=== PATIENT | female | born 1955 | race Caucasian/White ===

== ENCOUNTER 2017-04-07 23:17 | Emergency (ER) | payer MEDICARE ==
--- NOTE | ~2017-04-07 | CT52 ---
[facility] A Service of [facility] RADIOLOGY TEXT RESULTS PATIENT: ADI FOOTE LOCATION: [facility] : 57 UNIT #: [id number] AGE: [address]: Levy Jackson MD SEX: F ORDER DR: [id number] [place], [place] [address] [id number] E MR#: [id number] Acc #: [id number] NAME: ADI FOOTE : 1955 SEX: F STUDY DATE/TIME: 04/08/2017 0:11 UNIT: TREE ROOM: STUDY DESCRIPTION: CT Cervical Spine Wo Cont Attending Physician: Levy Jackson M.D. Ordering Physician: Levy Jackson M.D. Primary Care Physician: Nghia Ojeda MEDICAL IMAGING REPORT This report is preliminary unless electronic signature is present EXAM Cervical spine CT without contrast INDICATION Neck pain after falling over in wheelchair tonight. TECHNIQUE Axial 2 mm images were obtained through the cervical spine and sagittal and coronal reconstructions were generated. This CT exam was performed with one or more of the following radiation dose reduction techniques: automatic exposure control, adjustment of mA and/or kV according to patient size, and iterative reconstruction. FINDINGS There is normal alignment. There is some posterior osteophyte formation at C5-6 and C6-7. There is no fracture or subluxation. IMPRESSION Mild degenerative changes C5-6 and C6-7, otherwise normal. Dictated by... Vahe Quijano M.D. THIS IS AN ELECTRONICALLY VERIFIED REPORT Vahe Quijano M.D. at 04/09/2017 5:00 AM COLIN/mario TD: 04/09/2017 01:58 JOB #: [id number] [facility] A Service of [facility] RADIOLOGY TEXT RESULTS PATIENT: ADI FOOTE LOCATION: [facility] : 57 UNIT #: [id number] AGE: [address]: Levy Jackson MD SEX: F ORDER DR: MEDICAL IMAGING REPORT Page 1 of 1 COPY
--- NOTE | ~2017-04-07 | CT71 ---
[facility] A Service of [facility] RADIOLOGY TEXT RESULTS PATIENT: ADI FOOTE LOCATION: [facility] : 57 UNIT #: [id number] AGE: [address]: Levy Jackson MD SEX: F ORDER DR: [id number] [facility] [address] [place], [place] [address] [id number] E MR#: [id number] Acc #: [id number] NAME: ADI FOOTE : 1955 SEX: F STUDY DATE/TIME: 04/08/2017 0:05 UNIT: [facility] ROOM: STUDY DESCRIPTION: CT Head Wo Contrast Attending Physician: Levy Jackson M.D. Ordering Physician: Levy Jackson M.D. Primary Care Physician: Nghia Ojeda MEDICAL IMAGING REPORT This report is preliminary unless electronic signature is present EXAM CT scan of the head without contrast INDICATION Trauma to back of head after wheelchair fell backwards. Complains of posterior headache since then, injury happened tonight. This CT exam was performed with one or more of the following radiation dose reduction techniques: automatic exposure control, adjustment of mA and/or kV according to patient size, and iterative reconstruction. FINDINGS Unenhanced images were obtained through the brain. There is some old ischemic change in the right cerebellum which has developed since the prior study from 03/17/2016. These are two areas measuring about 1 cm in diameter. There is no mass or extraaxial fluid collection. There is no fracture or hemorrhage. IMPRESSION Old small ischemic changes, right cerebellum, otherwise normal. Dictated by... Vahe Quijano M.D. THIS IS AN ELECTRONICALLY VERIFIED REPORT Vahe Quijano M.D. at 04/09/2017 5:00 AM COLIN/mario TD: 04/09/2017 01:54 JOB #: [id number] [facility] A Service of [facility] RADIOLOGY TEXT RESULTS PATIENT: ADI FOOTE [id number] 57 UNIT #: [id number] AGE: [address]: Levy Jackson MD SEX: F ORDER DR: MEDICAL IMAGING REPORT Page 1 of 1 COPY
[~2017-04-07 23:17] MED LIST: ACETAMINOPHEN PO; ALPRAZOLAM PO; ASPIR-TRIN325 MG PO; ASPIRIN PO; BACTRIM DS TABL1 TA1 PO; BAYER ASPIRIN325 M1 PO; BENADRYL25 M1 PO; CIPRO PO; CIPROFLOXACIN500 M1 PO; CLEOCIN HCL300 M1 PO; CLEOCIN PO; COLACE PO; DAKIN'S MODIF1000 ML TOP; DURAGESIC1 EAC1 SUBD; DURAGESIC1 EAC1 TD; ELIQUIS5 MG PO; EXCEDRIN MIGRA1 EACH PO; FERROUS GLUCON324 MG PO; FLEXERIL PO; FLORASTOR250 M1 PO; GABAPENTIN800 MG PO; HUMALOG MIX 75/10 ML SUBQ; HUMALOG100 U/M2 SUBQ; HUMALOG100 U/ML; HYDROCODON-ACE1 EAC4; HYDROCODON-ACE1 EAC4 PO; HYDROCODON-ACE1 EAC5 PO; HYDROCODONE-APA1 T54 PO; INDOMETHACIN50 MG PO; INSULIN SYR1 DIS.S10; JANUVIA PO; KEFZOL2 GM INJ; KLONOPIN1 M1 PO; KLONOPIN1 MG PO; LEVAQUIN PO; LEVAQUIN750 MG PO; LEVEMIR FL100 UNIT/1 SQ; LEVEMIR SUBQ; LEVEMIR100 UNITS/ SUBQ; LIPITOR20 MG PO; LIPITOR80 MG PO; LISINOPRIL PO; LISINOPRIL10 MG PO; LISINOPRIL5 MG PO; LORTAB 10/500 T1 TAB PO; LOTRIMIN 1% CR30 GM EXT; LOTRISONE CREAM45 GM TOP; LYRICA50 MG PO; METFORMIN HCL1000 M1 PO; METFORMIN PO; NEURONTIN PO; NEURONTIN800 MG DOB; NEURONTIN800 MG PO; NORCO 10/3251 TAB PO; NOVOLIN 70/30 V10 M1; NOVOLOG100 U/ML SUBQ; NOVOLOG7030 SUBQ; OXYCODONE-ACET1 EACH PO; PERCOCET 10/3251 TAB PO; PERCOCET5/325 PO; PHENERGAN25 MG PO; PREDNISONE10 MG; PRINIVIL10 MG PO; PROZAC40 MG PO; RIFAMPIN300 MG PO; SENNA S TABLET1 TAB; SENNA8.6 M1 PO; SEROQUEL PO; SOMA PO; SOMA250 MG PO; TOPAMAX PO; TOPIRAMATE100 MG PO; TYLENOL325 M1 PO; VOLTAREN50 MG PO; VOLTAREN75 MG PO; ZANAFLEX4 M1 PO; ZANTAC150 MG PO; ZESTRIL10 M1 PO; ZYVOX600 MG PO
== END 2017-04-08 01:10 | disposition home or self-care (01) ==
LOC: CED 23:17
DX: S16.1XXA Strain of muscle, fascia and tendon at neck level, initial encounter (principal); S00.93XA Contusion of unspecified part of head, initial encounter; I10 Essential (primary) hypertension; E11.9 Type 2 diabetes mellitus without complications; Z88.0 Allergy status to penicillin; Z79.4 Long term (current) use of insulin; Z79.899 Other long term (current) drug therapy; W22.8XXA Striking against or struck by other objects, initial encounter
CPT/HCPCS: 70450; 72125; 96372; 99284; J1885